=== PATIENT | male | born 1960 | race Caucasian/White ===

== ENCOUNTER 2021-05-15 09:51 | Outpatient (REF) | payer OTHER, MEDICARE, SELFPAY ==
--- NOTE | ~2021-05-15 | MR_ITS ---
EXAMINATION: MR ABDOMEN WITHOUT AND WITH CONTRAST CLINICAL INFORMATION: Evaluate right renal lesion. COMPARISON: CT abdomen from 10/31/2020. Renal ultrasound from 02/16/2018. Abdomen MRI from 05/07/2020. TECHNIQUE: MR abdomen was performed without and with use of 10 mL Gadavist contrast. Postcontrast images are performed in multiphase dynamic sequences. Imaging was performed in 3 planes. FINDINGS: LUNG BASES: Normal. No pulmonary consolidation or pleural effusion at either lung base. HEPATOBILIARY: The liver is partially included in the [id number] on the axial images. The axial images are more focused on the kidneys than the liver. However, liver is included in the [id number] on sagittal and coronal images. The liver parenchyma exhibits significant decreased signal on [id number]-[id number] compared to in-phase T1-weighted images from steatosis. Gallbladder is surgically absent. A few hepatic cysts are noted, largest 1.9 cm. No suspicious liver lesion. PANCREAS: Normal. No edema, pancreatic ductal dilatation or mass. SPLEEN: Normal. ADRENAL GLANDS: The bilateral adrenal nodules are stable compared to 05/07/2020. The right adrenal nodule measures 1.6 cm transverse and left adrenal nodule 1.5 cm transverse. These adrenal nodules exhibit significant decreased signal on cah-dh-[id number] images, consistent with lipid rich adenomas. KIDNEYS: There are multiple Bosniak category 1 as well as a few Bosniak category 2 cysts of the kidneys. Note that renal imaging follow-up is not recommended for these particular cysts. No hydronephrosis. There are no hemorrhagic renal lesions. There is chronic, focal absence of cortex in the posterior interpolar area of the right kidney at which point heterogeneous fat signal is seen. Query if there is any history of partial nephrectomy or cryoablation treatment in this area of the kidney. In this same region of the kidney, there is a solid, contrast-enhancing nodular focus that measures up to 1 cm and is stable in size compared to 05/07/2020. The visualized ureters are unremarkable. There appears to be an old small focus of fat necrosis in the perinephric fat posterior to the right lower pole. BOWEL AND PERITONEUM: No dilated bowel loops. There is a diverticulum of the second portion of the duodenum. No mesenteric fat stranding or ascites. Chronic diastases of rectus abdominis muscles of the anterior abdominal wall. VASCULATURE: Abdominal aorta is normal in caliber. No aortic aneurysm. The celiac artery measures up to 1.1 cm transverse diameter and is unchanged compared to CT angiography of 10/31/2020. Inferior vena cava and renal veins are normal. LYMPH NODES: No pathologic sized lymph nodes in the abdomen. SKELETAL: No suspicious bone lesions. There appears to be a small hemangioma of the L4 vertebral body. Mild dextrocurvature of the lower thoracic and lumbar spine, and multilevel osteophyte formation of the spine.. MR/MR abdomen wo/w con IMPRESSION: * There is chronically distorted anatomy of the posterior interpolar region of the right kidney at which point there is heterogeneous fat and a 1 cm nodular focus of contrast enhancement. This focus of contrast enhancement might represent a residual island of cortex or small solid mass. Query if there is any history of partial nephrectomy or cryoablation treatment of a tumor in this area of the kidney. If there was treatment of renal cell carcinoma, then this nodular focus of stable enhancement could represent residual tumor. A review of any more remote imaging exams and any other relevant patient history would be helpful. * No abdominal lymphadenopathy. 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 * Diffuse hepatic steatosis.
--- NOTE | ~2021-05-15 | MR_ITS ---
EXAMINATION: MR LUMBAR SPINE WITHOUT CONTRAST CLINICAL INFORMATION: Lower back pain with right leg pain, numbness, and weakness. Sacroiliac joint fusion. COMPARISON: None TECHNIQUE: MRI of the lumbar spine was obtained using routine sequences without contrast. FINDINGS: VERTEBRAL BODIES AND PARASPINAL STRUCTURES: Normal vertebral body alignment. The lumbar lordosis is maintained. No acute fracture or subluxation. No loss of vertebral body height. Loss of intervertebral disc height with disc desiccation throughout the lumbar spine, most prominent at L1-L2 and L5-S1. Minimal Modic type II degenerative endplate changes at L3-L4. Probable vertebral body hemangioma within L4. No marrow edema to suggest acute osseous injury. Partially visualized bilateral renal cysts. Findings are better evaluated on the concurrent abdominal MRI. Partially visualized left sacroiliac joint fusion hardware. CONUS MEDULLARIS AND CAUDA EQUINA: Normal, terminating at the level of L1. SPINAL LEVELS: T12-L1: Minimal left subarticular disc protrusion. No central canal or neural foraminal stenosis. L1-L2: Broad-based disc bulge with a left paracentral disc protrusion which abuts the traversing left L2 nerve root within the lateral recess. Bilateral facet arthropathy with mild bilateral neural foraminal stenosis. L2-L3: Minimal broad-based disc bulge. No significant central canal or neural foraminal stenosis. L3-L4: Minimal broad-based disc bulge with a tiny posterior central disc protrusion. Bilateral facet arthropathy with mild bilateral neural foraminal stenosis. L4-L5: Broad-based disc bulge with bilateral facet arthropathy as well as a left extraforaminal disc-osteophyte complex which abuts the exiting left L4 nerve root. Bilateral facet arthropathy. Mild bilateral neural foraminal stenosis. L5-S1: Minimal disc bulge. Bilateral facet arthropathy. Mild bilateral neural foraminal stenosis. MR/MR lumbar spine wo con IMPRESSION: 1. Broad-based disc bulge and left paracentral disc protrusion at L1-L2 abutting the traversing left L2 nerve root. Bilateral facet arthropathy with mild bilateral neural foraminal stenosis. 2. Broad-based disc bulge at L4-L5 with bilateral facet arthropathy and a left extraforaminal disc-osteophyte complex which abuts the exiting left L4 nerve root. Bilateral facet arthropathy and mild bilateral neural foraminal stenosis. 3. Additional multilevel degenerative disc disease and facet arthropathy, as above.
== END 2021-05-15 09:52 | disposition home or self-care (01) ==
LOC: HO.MRI 09:51
PROVIDERS: PCP Family Medicine; Visit Provider Radiology Diagnostic Radiology
DX: G89.29 Other chronic pain (principal); M54.41 Lumbago with sciatica, right side; N28.9 Disorder of kidney and ureter, unspecified
CPT/HCPCS: 72148; 74183; A9585